=== PATIENT | female | born 1965 | race Caucasian/White ===

== ENCOUNTER → 2020-11-27 | Outpatient (CLI) | payer OTHER ==
[~2020-11-27] MED LIST: CLINDAMYCIN HC150 MG PO
== END ==
LOC: KOH-I 13:05
DX: R06.02 Shortness of breath (principal)
CPT/HCPCS: 71046

== ENCOUNTER 2021-03-28 09:02 | Emergency (ER) | payer OTHER ==
[2021-03-28 10:19] LABS: HEMOGLOBIN 16.4 gm/dl (12.3-15.3); RED BLOOD COUNT 5.29 M/UL (4.00-5.10); WHITE BLOOD COUNT 12.4 K/UL (4.5-11.0)
[2021-03-28 10:57] LABS: BUN/CREATININE RATIO 13 (0-10)
[2021-03-28] MEDS ORDERED: CLINDAMYCIN HC150 MG PO (14:59)
== END 2021-03-28 15:40 | disposition home or self-care (01) ==
LOC: ER1 09:02
PROVIDERS: Physician Assistant Medical
DX: L03.211 Cellulitis of face (principal)
CPT/HCPCS: 70487; 80053; 85025; 87040; 96374; 99284

== ENCOUNTER → 2021-04-22 | Outpatient (CLI) | payer OTHER | LOC: US 08:00 | DX: R74.8 Abnormal levels of other serum enzymes (principal); K76.0 Fatty (change of) liver, not elsewhere classified | CPT/HCPCS: 76705 ==